=== PATIENT | female | born 1960 | race Caucasian/White ===

== ENCOUNTER 2016-07-25 16:30 | Emergency (ER) | payer OTHER ==
[~2016-07-25] VITALS: Ht 167.6 cm; Wt 109.0 kg
[~2016-07-25 16:30] MED LIST: ALPRAZOLAM2 M1 PO; AMITRIPTYLINE100 M1 PO; ASACOL HD800 MG PO; ASACOL400 MG PO; BENTYL20 MG PO; Cipro PO; DELZICOL400 MG PO; DICYCLOMINE HCL20 MG PO; ELAVIL100 MG PO; FLAGYL500 MG PO; HYDROCODON-ACE1 EAC7 PO; INDERAL20 MG PO; PAROXETINE HCL40 MG PO; PROTONIX40 MG PO; Phenergan PO; Proventil,Ventolin H IH; QUETIAPINE FUM100 MG PO; QUETIAPINE FUMA50 MG PO; ULTRAM50 MG PO; Vicodin,Lortab 5/500 PO; XANAX2 MG PO
[2016-07-25] MEDS ORDERED: ULTRAM50 MG PO (18:38)
[2016-07-25] MEDS ORDERED: PROPRANOLOL HCL20 MG PO (18:38)
[2016-07-25 19:34] VITALS: BP 117/72
== END 2016-07-25 19:35 | disposition home or self-care (01) ==
LOC: EME 16:30
PROC: 0HQKXZZ Repair Right Lower Leg Skin, External Approach (ICD-10-PCS; principal; 2016-07-25)
PROC: 3E0234Z Introduction of Serum, Toxoid and Vaccine into Muscle, Percutaneous Approach (ICD-10-PCS; principal; 2016-07-25)
DX: S81.011A Laceration without foreign body, right knee, initial encounter (principal); R00.0 Tachycardia, unspecified; W01.198A Fall on same level from slipping, tripping and stumbling with subsequent striking against other object, initial encounter
CPT/HCPCS: 73564; 99281; 99283; J1885

== ENCOUNTER 2016-08-19 16:10 | Emergency (ER) | payer OTHER ==
[~2016-08-19] VITALS: Ht 162.6 cm; Wt 105.8 kg
[~2016-08-19 16:10] MED LIST changes: +PROPRANOLOL HCL20 MG PO
[2016-08-19 16:19] VITALS: BP 126/88
== END 2016-08-19 17:05 | disposition home or self-care (01) ==
LOC: EME 16:10
DX: S81.011D Laceration without foreign body, right knee, subsequent encounter (principal); F17.200 Nicotine dependence, unspecified, uncomplicated
CPT/HCPCS: 99281; 99283

== ENCOUNTER 2017-03-01 17:42 | Emergency (ER) | payer OTHER ==
[~2017-03-01] VITALS: Ht 170.2 cm; Wt 109.1 kg
[2017-03-01] MEDS ORDERED: ALPRAZOLAM ER2 MG PO (22:23)
[2017-03-01 22:49] VITALS: BP 0/0
== END 2017-03-01 22:51 | disposition home or self-care (01) ==
LOC: EME 17:42
DX: F41.1 Generalized anxiety disorder (principal); I10 Essential (primary) hypertension; K21.9 Gastro-esophageal reflux disease without esophagitis; F17.200 Nicotine dependence, unspecified, uncomplicated
CPT/HCPCS: 90839; 99281; 99285

== ENCOUNTER 2017-06-08 15:38 | Inpatient (IN) | payer OTHER ==
[~2017-06-08] VITALS: Ht 167.6 cm; Wt 111.3 kg
[~2017-06-08 15:38] MED LIST changes: +ALPRAZOLAM ER2 MG PO
[2017-06-08 17:13] LABS: CHLORIDE 101 mEq/L (99-109); POTASSIUM 3.7 mEq/L (3.7-5.4); SODIUM 139 mEq/L (136-147)
[2017-06-08 17:15] LABS: GLUCOSE 113 mg/dL (70-99)
[2017-06-08 17:17] LABS: ANION GAP 10 MEQ/L (2-14); TOTAL BILIRUBIN 0.5 mg/dL (0.0-1.0)
[2017-06-08 17:19] LABS: ALKALINE PHOSPHATASE 93 IU/L (3-129); GFR ESTIMATE (CALCULATED) > 59 mL/min/
[2017-06-08 17:20] LABS: UREA NITROGEN (BUN) 7 mg/dL (9-23)
[2017-06-08 18:01] LABS: BASOPHIL COUNT 0.1 K/uL (0-0.1); EOSINOPHIL (%) 2.5 % (0-5); EOSINOPHIL COUNT 0.3 K/uL (0-0.3); HEMATOCRIT 49.1 % (36.0-46.0); IMMATURE GRANULOCYTE (%) 0.2 % (0.0-0.7); INSTRUMENT ABS NEUTROPHIL CT 6.3 K/uL; LYMPHOCYTE COUNT 2.7 K/uL (1.0-2.8); MCH 32.3 PG (29.0-34.0); MCV 97.8 FL (83-99); MEAN PLAT.VOLUME 11.6 uM^3 (9.5-12.4); MONOCYTE (%) 5.4 % (3-12); MONOCYTE COUNT 0.5 K/uL (0-0.8); NEUTROPHIL (%) 63.7 % (45-76); NEUTROPHIL COUNT 6.3 K/uL (1.8-6.4); PLATELET COUNT 178 K/uL (156-360); RBC DIS.WIDTH-CV 12.3 % (11.8-14.6); RBC DIS.WIDTH-SD 44.3 % (39-53); RED BLOOD COUNT 5.02 M/uL (3.80-5.20); WHITE BLOOD COUNT 9.9 K/uL (4.1-10.2)
[2017-06-08 20:07] LABS: HEMATOCRIT 50.8 % (36.0-46.0); MCV 97.9 FL (83-99)
[2017-06-08 20:36] VITALS: BP 135/89
[2017-06-09] VITALS (7 sets, daily range): BP systolic 95–138; BP diastolic 51–86
[2017-06-09 08:11] LABS: BASOPHIL COUNT 0.1 K/uL (0-0.1); EOSINOPHIL (%) 3.6 % (0-5); EOSINOPHIL COUNT 0.4 K/uL (0-0.3); HEMATOCRIT 49.4 % (36.0-46.0); IMMATURE GRANULOCYTE (%) 0.2 % (0.0-0.7); INSTRUMENT ABS NEUTROPHIL CT 6.1 K/uL; LYMPHOCYTE COUNT 3.1 K/uL (1.0-2.8); MCH 31.5 PG (29.0-34.0); MCV 98.6 FL (83-99); MONOCYTE (%) 5.5 % (3-12); MONOCYTE COUNT 0.6 K/uL (0-0.8); NEUTROPHIL (%) 59.7 % (45-76); NEUTROPHIL COUNT 6.1 K/uL (1.8-6.4); PLATELET COUNT 154 K/uL (156-360); RBC DIS.WIDTH-CV 12.6 % (11.8-14.6); RED BLOOD COUNT 5.01 M/uL (3.80-5.20); WHITE BLOOD COUNT 10.3 K/uL (4.1-10.2)
[2017-06-09 08:22] LABS: INTER. NORMALIZED RATIO 1.1; PROTHROMBIN TIME 12.5 SEC (10.2-12.9)
[2017-06-09 08:25] LABS: PTT 29.3 SEC (25-37)
[2017-06-09 08:45] LABS: ANION GAP 8 MEQ/L (2-14); CHLORIDE 99 MEQ/L (99-109); GFR ESTIMATE (CALCULATED) > 59 mL/min/; GLUCOSE 110 mg/dL (70-99); POTASSIUM 3.8 MEQ/L (3.7-5.4); SAMPLE HEMOLYSIS CHECK 0; SAMPLE ICTERIC CHECK 0; SAMPLE LIPEMIA CHECK 0; SODIUM 138 MEQ/L (136-147); UREA NITROGEN (BUN) 8 mg/dL (9-23)
[2017-06-09 09:12] LABS: ERTH.SED.RATE 40 MM/HR (0-30)
[2017-06-09] MEDS ORDERED: IBUPROFEN800 MG PO (10:48)
[2017-06-09] MEDS ORDERED: CYCLOBENZAPRINE10 MG PO (10:48)
[2017-06-09] MEDS ORDERED: RANITIDINE HCL150 MG PO (10:48)
[2017-06-09] MEDS ORDERED: VENTOLIN HFA18 GM IH (10:49)
[2017-06-09] MEDS ORDERED: FLONASE16 G1 BOTH NARES (10:52)
[2017-06-09 15:48] LABS: MCV 99.2 FL (83-99)
[2017-06-10 00:46] LABS: HEMATOCRIT 44.1 % (36.0-46.0); MCV 99.5 FL (83-99)
[2017-06-10 03:34] VITALS: BP 130/75
[2017-06-10 05:01] LABS: HEMATOCRIT 44.1 % (36.0-46.0); MCH 32.9 PG (29.0-34.0); MCHC 32.7 G/DL (30.0-36.0); MCV 100.7 FL (83-99); MEAN PLAT.VOLUME 10.8 uM^3 (9.5-12.4); PLATELET COUNT 150 K/uL (156-360); RBC DIS.WIDTH-CV 12.4 % (11.8-14.6); RBC DIS.WIDTH-SD 46.7 % (39-53); RED BLOOD COUNT 4.38 M/uL (3.80-5.20); WHITE BLOOD COUNT 8.3 K/uL (4.1-10.2)
[2017-06-10 05:36] LABS: CHLORIDE 98 mEq/L (99-109); POTASSIUM 3.3 mEq/L (3.7-5.4); SODIUM 139 mEq/L (136-147)
[2017-06-10 05:38] LABS: GLUCOSE 119 mg/dL (70-99)
[2017-06-10 05:40] LABS: ANION GAP 11 MEQ/L (2-14)
[2017-06-10 05:42] LABS: GFR ESTIMATE (CALCULATED) > 59 mL/min/
[2017-06-10 05:43] LABS: UREA NITROGEN (BUN) 7 mg/dL (9-23)
[2017-06-10 07:33] VITALS: BP 118/84
[2017-06-10 08:21] LABS: HEMATOCRIT 43.9 % (36.0-46.0); MCV 100.9 FL (83-99)
[2017-06-10 09:37] LABS: ADD MIUA? YES; BILIRUBIN NEGATIVE; BLOOD MODERATE; COLOR YELLOW ((YELLOW)); GLUCOSE (STRIP) NEGATIVE; KETONES NEGATIVE; LEUKOCYTES TRACE; NITRITE NEGATIVE; PROTEIN (STRIP) NEGATIVE; UROBILINOGEN 0.2 MG/DL (0.2-1.0)
[2017-06-10 09:42] LABS: BACTERIA RARE /HPF; EPITHELIAL CELLS RARE /HPF; MUCUS TRACE /LPF; RED BLOOD CELLS 0-5 /HPF (0-5); UCUL ADDED? NO; WHITE BLOOD CELLS 0-5 /HPF (0-5)
[2017-06-10 11:57] VITALS: BP 142/68
[2017-06-10] MEDS ORDERED: FLAGYL500 MG PO (14:40)
[2017-06-10] MEDS ORDERED: CIPRO500 MG PO (14:41)
[2017-06-10 16:10] LABS: HEMATOCRIT 42.7 % (36.0-46.0); MCV 101.2 FL (83-99)
== END 2017-06-10 17:41 | disposition home or self-care (01) | DRG 394 ==
LOC: EME 15:38 → EDOF 19:16 → 5WEST 19:16 → ENRESERV 19:20 → 5WEST 20:11 → ENRESERV 06-09 16:55 → CANRESERV 06-09 16:55 → 5WEST 06-10 17:41
PROVIDERS: Family Medicine; Internal Medicine Gastroenterology; Nurse Practitioner Adult Health; Physician Assistant; Physician Assistant Medical
DX: K55.9 Vascular disorder of intestine, unspecified (principal); R13.10 Dysphagia, unspecified; K63.3 Ulcer of intestine; M54.9 Dorsalgia, unspecified; M19.90 Unspecified osteoarthritis, unspecified site; E66.9 Obesity, unspecified; G89.29 Other chronic pain; K22.4 Dyskinesia of esophagus; K76.0 Fatty (change of) liver, not elsewhere classified; F41.1 Generalized anxiety disorder; K21.9 Gastro-esophageal reflux disease without esophagitis; K80.20 Calculus of gallbladder without cholecystitis without obstruction; F17.200 Nicotine dependence, unspecified, uncomplicated; F31.9 Bipolar disorder, unspecified; Z87.19 Personal history of other diseases of the digestive system; Z68.39 Body mass index [BMI] 39.0-39.9, adult; Z90.710 Acquired absence of both cervix and uterus; Z98.51 Tubal ligation status; Z88.6 Allergy status to analgesic agent; Z88.0 Allergy status to penicillin
CPT/HCPCS: 74177; 80048; 80053; 80069; 81003; 83605; 85014; 85018; 85025; 85027; 85610; 85651; 85730; 86140; 87493; 87506; 94799; 99202; 99281; 99285; G0378; G8987 GO CH; G8988 GO CH; G8989 GO CH; J0744; J7030; S0030